=== PATIENT | female | born 1950 | race Two or more races ===

== ENCOUNTER 2021-03-26 12:14 | Outpatient (CLI) | payer OTHER ==
[2021-03-26] MEDS ORDERED: HUMALOG MI100 UNIT/2 (14:13)
[2021-03-26] MEDS ORDERED: IRBESARTAN150 MG PO (14:14)
[2021-03-26] MEDS ORDERED: HUMALOG KW100 UNIT/1 SUBCUTANEO (14:24)
== END 2021-03-26 12:46 | disposition home or self-care (01) ==
LOC: LAB 12:14
DX: D64.89 Other specified anemias (principal); E88.89 Other specified metabolic disorders; I10 Essential (primary) hypertension; Z76.89 Persons encountering health services in other specified circumstances; I49.8 Other specified cardiac arrhythmias; D68.8 Other specified coagulation defects; N39.0 Urinary tract infection, site not specified; B95.62 Methicillin resistant Staphylococcus aureus infection as the cause of diseases classified elsewhere; E83.42 Hypomagnesemia; E11.9 Type 2 diabetes mellitus without complications; U07.1 COVID-19; E03.8 Other specified hypothyroidism

== ENCOUNTER 2021-04-06 08:30 | Day surgery (SDC) | payer OTHER ==
[~2021-04-06 08:30] MED LIST: HUMALOG KW100 UNIT/1 SUBCUTANEO; HUMALOG MI100 UNIT/2; IRBESARTAN150 MG PO
== END 2021-04-06 18:00 | disposition home or self-care (01) ==
LOC: CIR.AMB 08:30
PROVIDERS: ATTEND Orthopaedic Surgery
DX: S42.231A 3-part fracture of surgical neck of right humerus, initial encounter for closed fracture (principal); Z20.822 Contact with and (suspected) exposure to COVID-19
CPT/HCPCS: 23615; C1776

== ENCOUNTER 2021-04-30 08:02 | Outpatient (CLI) | payer OTHER | END 2021-04-30 08:10 | disposition home or self-care (01) | LOC: RAD 08:02 | PROVIDERS: ATTEND Orthopaedic Surgery | DX: S42.231D 3-part fracture of surgical neck of right humerus, subsequent encounter for fracture with routine healing (principal) ==

== ENCOUNTER 2021-10-08 10:59 | Outpatient (CLI) | payer OTHER | END 2021-10-08 11:03 | disposition home or self-care (01) | LOC: LAB 10:59 | PROVIDERS: ATTEND Orthopaedic Surgery | DX: E55.9 Vitamin D deficiency, unspecified (principal); M85.9 Disorder of bone density and structure, unspecified; E56.1 Deficiency of vitamin K; E21.3 Hyperparathyroidism, unspecified; E88.9 Metabolic disorder, unspecified; M81.8 Other osteoporosis without current pathological fracture ==

== ENCOUNTER 2021-12-17 07:12 | Outpatient (CLI) | payer OTHER | END 2021-12-17 07:25 | disposition home or self-care (01) | LOC: LAB 07:12 | PROVIDERS: ATTEND Orthopaedic Surgery | DX: D64.9 Anemia, unspecified (principal); E88.9 Metabolic disorder, unspecified; D68.8 Other specified coagulation defects; N39.0 Urinary tract infection, site not specified; A49.02 Methicillin resistant Staphylococcus aureus infection, unspecified site; I10 Essential (primary) hypertension; I49.9 Cardiac arrhythmia, unspecified; Z76.89 Persons encountering health services in other specified circumstances ==